=== PATIENT | male | born 1940 | race Two or more races ===

== ENCOUNTER → 2024-04-11 | Outpatient (CLI) | payer OTHER, SELFPAY ==
[2024-04-11 11:17] LABS: Collection Type, Urine Clean Catch
[2024-04-11 11:45] LABS: Bilirubin,Urine Negative (Negative); Blood,Urine Negative (Negative); Clarity,Urine Clear (Clear/Hazy); Color,Urine Lt-Yellow (Lt Yel-Yel); Culture Indicated,Urine Not Indicated; Glucose, Urine Negative (Negative); Ketones,Urine Negative (Negative); Leukocyte Esterase,Urine Negative (Negative); Nitrite,Urine Negative (Negative); Protein,Urine Negative (Neg - Trace); RBC,Urine 9 /hpf (0-3); Specific Gravity,Urine 1.019 (1.001-1.035); Squamous Epithelial Cell,Urine < 1 /hpf (0-5); Urobilinogen,Urine Negative mg/dL (0.0-1.0); WBC,Urine 1 /hpf (0-5)
[2024-04-11 11:50] LABS: Basophils % (Auto) 1 % (0-2.5); Eosinophils % (Auto) 1 % (0-10); Hematocrit 37.2 % (41.0-53.0); Hemoglobin 12.9 g/dL (13.5-16.0); Immature Granulocytes % (Auto) 0 % (0-0); Immature Granulocytes Auto 0.01 Thou/mm3 (0.00-0.00); Lymphocytes # (Auto) 1.3 Thou/mm3 (1.0-4.8); Lymphocytes % (Auto) 29 % (10-50); Mean Corpuscular HGB Conc 34.7 g/dl (31.0-37.0); Mean Corpuscular Hemoglobin 31.4 pg (25.0-35.0); Mean Corpuscular Volume 91 fL (80-100); Monocytes # (Auto) 0.3 Thou/mm3 (0.0-0.8); Monocytes % (Auto) 6 % (0-12); Neutrophils # (Auto) 2.9 Thou/mm3 (1.8-7.7); Neutrophils % (Auto) 63 % (37-80); Nucleated Red Blood Cell % 0 /100 WBC (0); Platelet Count 175 Thou/mm3 (140-440); RDW Standard Deviation 42.7 fL (35.1-43.9); Red Blood Count 4.11 Miln/mm3 (4.50-5.90); White Blood Count 4.6 Thou/mm3 (3.8-10.6)
[2024-04-11 11:54] LABS: Glucose Estimated Average 174 mg/dL (80-131); Hemoglobin A1C 7.7 % Hgb (4.8-6.0)
[2024-04-11 11:58] LABS: Alanine Aminotransferase 13 U/L (10-49); Albumin, Serum 4.5 gm/dL (3.4-4.8); Albumin/Globulin Ratio 1.7 (1.2-2.2); Alkaline Phosphatase 78 U/L (46-116); Anion Gap 5 (7-16); Aspartate Amino Transferase 17 U/L (0-34); BUN/Creatinine Ratio 19 Ratio (12-20); Bilirubin,Total 0.8 mg/dL (0.3-1.2); Blood Urea Nitrogen 15 mg/dL (9-23); Calcium 9.6 mg/dL (8.3-10.6); Calcium (Corrected) 9.6 mg/dL (8.5-10.1); Carbon Dioxide 27.7 mMol/L (20.0-31.0); Chloride 106 mMol/L (98-107); Creatinine (Component) 0.8 mg/dL (0.6-1.3); Globulin 2.6 gm/dL (2.3-3.5); Glucose 158 mg/dL (74-106); Osmolality,Calculated 281 (275-295); PSA Medicare Annual Scrn 0.66 ng/mL (0-4.00); Potassium 4.5 mMol/L (3.4-5.1); Sodium 139 mMol/L (136-145); Total Protein 7.1 gm/dL (5.7-8.2); eGFR > 60 See Note
[2024-04-11 11:59] LABS: Creatinine MALB Rnd Ur 83 mg/dL (30-125); Microalbumin Creat Ratio 6 mg/gCrea (<30); Microalbumin, Random Urine 5 mg/L (0-300)
[2024-04-11 12:02] LABS: Vitamin B12 843 pg/mL (211-911)
== END | disposition home or self-care (01) ==
LOC: COPL 10:36
PROVIDERS: PCP Internal Medicine; Referring Provider Internal Medicine; Visit Provider Internal Medicine
DX: E11.9 Type 2 diabetes mellitus without complications (principal); I10 Essential (primary) hypertension; R35.1 Nocturia; F03.90 Unspecified dementia, unspecified severity, without behavioral disturbance, psychotic disturbance, mood disturbance, and anxiety
CPT/HCPCS: 36415; 80053; 81001; 82043; 82570; 82607; 83036; 84153; 85025; G0103

== ENCOUNTER 2024-10-24 09:41 | Inpatient (IN) | payer OTHER, MEDICARE, SELFPAY ==
[2024-10-24] VITALS (10 sets, daily range): BP systolic 106–192; BP diastolic 59–89; PULSE 56–98; RESP 13–19; TEMP 35.5–37.2; O2SAT 93–99; BMI 28.8
--- NOTE | 2024-10-24 09:54 | EKG_ITS ---
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: : 1940 Requested By: Ariana Perdue Order Number: [id number] Reading MD: Ariana Perdue Measurements Intervals [place] Rate: 75 P: 1 WY: 145 QRS: -56 QRSD: 104 T: 37 QT: 408 QTc: 459 Interpretive Statements SINUS RHYTHM INCOMPLETE RIGHT BUNDLE BRANCH BLOCK [90+ ms QRS DURATION, TERMINAL R IN V1/V2, 40+ ms S IN I/aVL/V4/V5/V6] LEFT ANTERIOR FASCICULAR BLOCK [QRS AXIS <= -45, QR IN I, RS IN II] VOLTAGE CRITERIA FOR LVH [MEETS CRITERIA IN ONE OF: R(aVL), S(V1), R(V5), R(V5/V6)+S(V1)] POSSIBLE SEPTAL MYOCARDIAL INFARCTION , PROBABLY OLD [30 ms Q WAVE IN V1/V2] Compared to ECG 06/22/2022 17:28:10 No significant changes /store/S0/[id number]/ecg/[id number].pdf
--- NOTE | 2024-10-24 09:55 | PD.EDADULT ---
ED General RME/HPI General Chief complaint: Altered Mental Status Stated complaint: WEAKNESS Time Seen by Provider: 10/24/24 09:55 Arrival date/time: 10/24/24 09:41 RME / HPI RME / HPI narrative: DR. LORD MAIN ED EVALUATION: 84 year old male presents to the Emergency Department [facility] with complaint of lethargy/ generalized weakness. Per EMS, family reported that patient was in bed and went to the living room about an hour prior to arrival and then that is when he became lethargic and weak. When EMS arrived the pateint was found lethargic, with pinpoint pupils, shallow respirations, and hypotensive laying on the living room couch. Per EMS, patient became slightly more awake after Narcan and had equal psychiatric lpn. Blood glucose en route was 237. PMHx: Hypertension, dementia, and diabetes. Social Hx: No tobacco, alcohol, or substance use. Related Data Home Medications ?Medication ?Instructions ?Recorded ?Confirmed atenolol 50 mg tablet 50 mg PO QDAY 07/23/21 06/11/22 metformin 500 mg tablet 500 mg PO BID 07/23/21 07/23/21 lisinopril 10 mg tablet 10 mg PO QDAY 06/11/22 06/11/22 meloxicam 7.5 mg tablet 7.5 mg PO QDAY 06/11/22 06/11/22 Allergies Allergy/AdvReac Type Severity Reaction Status Date / Time No Known Allergies Allergy Verified 06/11/22 11:34 Review of Systems Review of Systems ROS Unobtainable: unobtainable due to mental status Past Medical History Past Medical History CARDIAC: Positive Cardiac Disorders and Hypertension GASTROINTESTINAL: Positive Gastrointestinal Disorders and Gastrointestinal Bleed ENDOCRINE: Positive Endocrine Disorders and Diabetes Mellitus Type 2 Social History SMOKING STATUS: Never smoker SUBSTANCE USE: does not use ALCOHOL: Never ED Exam Narrative Physical exam: GENERAL APPEARANCE: altered, lethargic, responsive to painful stimuli only, with pinpoint pupils VITALS: All vitals were reviewed and the pulse ox is 99% on 2 L/min via a nasal cannula. HEENT: Normocephalic, atraumatic; pinpoint pupils; mucous membranes pink, moist; oropharynx clear NECK: Supple LUNGS: CTABL; no wheezes, no rales, no rhonchi HEART: Regular rate, regular rhythm; normal S1, S2; no murmurs ABDOMEN: non distended; normal BS; soft, no tenderness, no guarding, no rebound; no masses, no organomegaly, no hernia BACK: no CVA tenderness EXTREMITIES: atraumatic; no edema NEUROLOGIC: altered, lethargic, responsive to painful stimuli only SKIN: warm, dry, normal color; no rashes Course Course Course Narrative: 951: Stroke alert initiated. Orders made at this time are congruent stroke protocol. Quality Measures none Orders Category Date Time Status Bedside Blood Glucose NOW Care 10/24/24 09:54 Active Director Of Rehabilitative Services NOW Care 10/24/24 09:54 Active Continuous Pulse Oximetry NOW Care 10/24/24 09:54 Completed EKG (ED ONLY) *Do not use* NOW Care 10/24/24 09:54 Completed In and Out Catheter NEEDED Care 10/24/24 09:54 Completed Initiate Warming Therapy X1 Care 10/24/24 12:29 Active Insert IV NOW Care 10/24/24 09:54 Active NIH Stroke Scale now Care 10/24/24 09:54 Active NPO NOW Care 10/24/24 09:54 Active Nurse Swallow Screen x1 Care 10/24/24 09:54 Active Consult to Neurology / Tele-Neurology Routine Cons 10/24/24 09:[address] angio stroke protocol Stat Exams 10/24/24 09:[address] stroke protocol Stat Exams 10/24/24 09:54 Completed EKG (ED Only) Stat Exams 10/24/24 09:54 Draft Ammonia Stat Lab 10/24/24 09:55 Completed Arterial Blood Gas Stat Lab 10/24/24 10:16 Completed B-Type Natriuretic Peptide Stat Lab 10/24/24 09:55 Completed CBC Stat Lab 10/24/24 09:55 Completed Comprehensive Metabolic Panel Stat Lab 10/24/24 09:55 Completed Drug Screen,Urine Stat Lab 10/24/24 10:55 Completed Magnesium Stat Lab 10/24/24 09:55 Completed Partial Thromboplastin Time Stat Lab 10/24/24 09:55 Completed Prothrombin Time with INR Stat Lab 10/24/24 09:55 Completed Troponin I Stat Lab 10/24/24 09:55 Completed Urinalysis Stat Lab 10/24/24 10:55 Completed Urine Culture Stat Lab 10/24/24 10:55 Received Ondansetron Inj [Zofran Inj] Med 10/24/24 09:54 Active 4 mg IVP Q4HR PRN Oxygen Delivery NOW RT 10/24/24 09:54 Active Reevaluation(s) Reevaluation #1: Patient is still responsive to painful stimuli only. Son is at bedside and states that maybe the patient did not take his medications last night but that his sister, the patient's daughter, would know the history better since the patient lives with her. Time: 12:03 Reevaluation #2: Daughter came in and told this morning the patient was trying to get out of bed but was too weak; his tried to help him but she is small and he was too weak so they called an ambulance. Per daughter, patient has dementia and has taken his 's medicatins in the past; unsure if he overdosed on any medications. Time: 12:30 Vital Signs Vital signs: Vital Signs Pulse Rate 98 10/24/24 09:54 Discharge Plan Plan Patient Disposition: Admit Acute Care w/in Hospital Prescriptions/Referrals Prescriptions/Med Rec: No Action metformin 500 mg tablet 500 mg PO BID atenolol 50 mg tablet 50 mg PO QDAY meloxicam 7.5 mg tablet 7.5 mg PO QDAY Patient Comments: TOME ROBBY TABLETA POR VIA ORAL TODOS LOS BRAVO CON ALIMENTO PARA DOLOR DE ESPALDA lisinopril 10 mg tablet 10 mg PO QDAY Patient Comments: TOME ROBBY TABLETA TODOS LOS D FOR BLOOD PRESSURE Referrals: Tom Shelton [Primary Care Provider] - In 1 week Problem List Clinical Impression: Altered mental status Patient/Caregiver Discharge Instructions Print Language: Amharic Stand Alone Forms: Lizette Award Info., Patient Portal Info Letter MDM Narrative [facility] hospital course: I, Verónica Linder am scribing for and in the presence of Dr. Lord. Clinical Information Provided by EMS [facility] Meds/Rx Considered, not Ordered None Labs/Rad/Tests considered, not Ordered None Chronic Illness/Social Conditions Add or document further as needed: PMHx: Hypertension, dementia, and diabetes. Social Hx: No tobacco, alcohol, or substance use. EKG Interpretation EKG #1: Date/time of EK10/24/24 1019 hours EKG interpretation: sinus rhythm, rate 75, incomplete right bundle branch block Imaging Radiology reports / interpretation(s): Procedure(s): CT stroke protocol Accession Number(s): [id number] cc: Chris Rodriges MD; Ariana Lord MD~ Examination: CT brain head without contrast. 2-D sagittal coronal reconstructions Date and time of exam:October 24, 2024 0959 hours INDICATIONS: Stroke alert, onset focal neurologic deficit today with altered mental status CTDI: vol (mGy):54.7 DLP: (mGycm):1106 Technique: Multiple CT axial sections of the brain have been obtained, 5 mm slice thickness. Contrast has not been administered. 2-D sagittal, coronal reconstructions have been obtained Low dose protocols were performed. One or more of the following dose reduction techniques were used; automated exposure control, adjustment of the mA and/or KV according to patient size, use of iterative reconstruction technique. Findings: Mild ventricular enlargement. Intra-axial or extra-axial hemorrhage density is not seen. No mass effect or midline shift Basal cisterns are not remarkable. Fourth ventricle is midline. Cranial vault intact. Impression: Negative for acute hemorrhage, mass effect or midline shift Dictated By: Chris Rodriges MD Procedure(s): CT angio stroke protocol Accession Number(s): [id number] cc: Tom Shelton; Chris Rodriges MD; Ariana Lord MD~ Examination: CTA carotids with intravenous contrast CTA brain, head with intravenous contrast. 2-D sagittal, coronal reconstructions. 3-D reconstructions. Exam date and time: October 24, 2024 1004 hours INDICATIONS: Stroke alert today, onset focal neurologic deficit CTDI: vol (mGy) 11.7 DLP: (mGycm) 447 Technique: Multiple CTA axial brain, head carotid images post intravenous contrast injection 75 cc, [id number]. 2-D sagittal, coronal reconstructions. 3-D reconstructions, 3-D post processing including vascular maximum intensity projection images. Low dose protocols were performed. One or more of the following dose reduction techniques were used; automated exposure control, adjustment of the mA and/or KV according to patient size, use of iterative reconstruction technique. Findings: No significant common carotid carotid bifurcation or internal carotid artery stenoses Severely atretic right vertebral artery in the neck which does opacify No cerebral large vessel arterial occlusions IMPRESSION: Severely atretic right vertebral artery, suggest carotid vertebral Doppler sonography follow-up to assess for retrograde flow in the right vertebral artery No cerebral large vessel arterial occlusions or thrombus Dictated By: Chris Rodriges MD Medication Administration(s) Medication Administration History Ondansetron HCl (Ondansetron Inj 2 Mg/Ml Inj 2 Ml) 4 mg IVP Q4HR PRN PRN Reason: NAUSEA OR VOMITING Stop: 11/23/24 09:53 Consultations/Discussions re: Management Consult #1: Date/time: 10/24/24 1310 hours Physician, specialty, service, details: Discussed test HPI, PMHx, lab, radiology results and/or management with resident working with the hospitalist. Will admit for further evaluation and management. Accepts patient for admission. Diagnosis Differential diagnosis: TIA, CVA, overdose Most likely dx, and/or detailed dx discussion: AMS Dispositon Disposition: Admit
--- NOTE | 2024-10-24 10:00 | PC.NURSE ---
UNABLE TO COMPLETE NIHSS DUE TO PT NOT ABLE TO FOLLOW COMMANDS
[2024-10-24 10:08] LABS: Basophils % (Auto) 1 % (0-2.5); Eosinophils # (Auto) 0.1 Thou/mm3 (0.0-0.5); Eosinophils % (Auto) 2 % (0-10); Hematocrit 32.8 % (41.0-53.0); Hemoglobin 11.8 g/dL (13.5-16.0); Immature Granulocytes % (Auto) 0 % (0-0); Immature Granulocytes Auto 0.01 Thou/mm3 (0.00-0.00); Lymphocytes # (Auto) 1.2 Thou/mm3 (1.0-4.8); Lymphocytes % (Auto) 26 % (10-50); Mean Corpuscular Hemoglobin 31.6 pg (25.0-35.0); Mean Corpuscular Volume 88 fL (80-100); Monocytes # (Auto) 0.3 Thou/mm3 (0.0-0.8); Monocytes % (Auto) 7 % (0-12); Neutrophils # (Auto) 2.8 Thou/mm3 (1.8-7.7); Neutrophils % (Auto) 64 % (37-80); Nucleated Red Blood Cell % 0 /100 WBC (0); Platelet Count 156 Thou/mm3 (140-440); RDW Standard Deviation 41.1 fL (35.1-43.9); Red Blood Count 3.74 Miln/mm3 (4.50-5.90); White Blood Count 4.4 Thou/mm3 (3.8-10.6)
[2024-10-24 10:19] LABS: Base Excess 0 (-3-3); HCO3 25 mEq/L (20-26); Inspired O2, VO2 Liters 2 L/min; O2 Saturation 99 % (91-98); PCO2 39 mmHg (32.0-48.0); PO2 104 mmHg (83-108); pH, Arterial 7.41 (7.35-7.45)
[2024-10-24 10:23] LABS: Allen Test Not Performed; Puncture Site Left Radial
[2024-10-24 10:29] LABS: INR 1.2 (0.9-1.3); Partial Thromboplastin Time 27.2 Seconds (22.0-36.0); Prothrombin Time 12.9 Seconds (9.0-12.2)
[2024-10-24 10:40] LABS: B-Type Natriuretic Peptide 129 pg/mL (0-100)
[2024-10-24 10:42] LABS: Ammonia < 10 uMol/L (11-32)
[2024-10-24 10:53] LABS: Alanine Aminotransferase < 7 U/L (10-49); Albumin/Globulin Ratio 1.7 (1.2-2.2); Alkaline Phosphatase 79 U/L (46-116); Anion Gap 12 (7-16); Aspartate Amino Transferase 14 U/L (0-34); BUN/Creatinine Ratio 13 Ratio (12-20); Bilirubin,Total 0.7 mg/dL (0.3-1.2); Blood Urea Nitrogen 12 mg/dL (9-23); Calcium 8.6 mg/dL (8.3-10.6); Calcium (Corrected) 8.6 mg/dL (8.5-10.1); Carbon Dioxide 25.3 mMol/L (20.0-31.0); Chloride 103 mMol/L (98-107); Creatinine (Component) 0.9 mg/dL (0.6-1.3); Estimated Creatinine Clearance 59.1 mL/min (>60); Globulin 2.3 gm/dL (2.3-3.5); Glucose 226 mg/dL (74-106); Magnesium 1.6 mg/dL (1.6-2.6); Osmolality,Calculated 286 (275-295); Potassium 3.8 mMol/L (3.4-5.1); Sodium 140 mMol/L (136-145); Total Protein 6.3 gm/dL (5.7-8.2); Troponin I < 0.020 ng/mL (0.0-0.045); eGFR > 60 See Note
[2024-10-24 10:57] LABS: Collection Type, Urine Catheter
[2024-10-24 11:02] LABS: Bilirubin,Urine Negative (Negative); Blood,Urine Negative (Negative); Clarity,Urine Clear (Clear/Hazy); Color,Urine Lt-Yellow (Lt Yel-Yel); Glucose, Urine 1+ (Negative); Hyaline Casts,Urine < 1 /hpf (0-1); Ketones,Urine 1+ (Negative); Leukocyte Esterase,Urine Negative (Negative); Nitrite,Urine Negative (Negative); Protein,Urine Negative (Neg - Trace); RBC,Urine 6 /hpf (0-3); Specific Gravity,Urine 1.028 (1.001-1.035); Squamous Epithelial Cell,Urine < 1 /hpf (0-5); Urobilinogen,Urine Negative mg/dL (0.0-1.0); WBC,Urine 1 /hpf (0-5)
[2024-10-24 11:09] LABS: Amphetamine/Methamp Scrn,U Negative (Negative); Barbiturate Screen,Urine Negative (Negative); Benzodiazepines Screen,Urine Negative (Negative); Benzoylecgonine Screen, Ur Negative (Negative); Fentanyl Screen,Urine Negative (Negative); Opiate Screen,Urine Negative (Negative); THC Screen,Urine Negative (Negative)
--- NOTE | 2024-10-24 14:50 | PD.RESHP ---
Documentation for date of: 10/24/24 [facility] History of Present Illness History of present illness: Patient is very somnolent and is unable to wake up to give history. Daughter is at bedside and history is obtained from her. Mr. Cortes is a 84-year-old male with past medical history significant for hypertension, diabetes, and dementia presented to the ED accompanied by daughter due to increased somnolence noted this morning. Patient's daughter stated that typically patient goes to bed around 11 PM and wakes up between noon and 1 PM the next day. However last night there was a garden snake in the house which Mr. Cortes later than usual and also caused him to wake up between 430 and 5 AM wondering if there was another snake in the house and was looking for another snake. Patient then went back to sleep and woke up at 8 AM to get ready to go somewhere with the family however patient was so sleepy he was unable to continue on the day. Patient then went to sleep on the floor at bedside and was unable to be aroused and woken. Patient daughter reported this has never happened before and patient denied any shortness of breath, dizziness, palpitations or syncopal episode prior to falling asleep. Patient's daughter then called EMS and was reported his heart rate and blood pressure were very low and fingerstick glucose was around 200. Patient lives with his daughter and . Patient usually takes his own medications without being supervised by anyone. Daughter is unable to confirm if her dad has taken multiple doses of the medications or not. Daughter reports in the past he has taken double doses of some medications due to his dementia and unable to recall. Daughter also denies any use of drugs or narcotics, states that her sister is prescribed tramadol however it is out of reach for her dad and her mom does have prescription for [employer] for his surgery in the past but is unable to confirm if there is any pills left. Patient does not have any episodes of melena or hematochezia. Has not reported any symptoms or complaints of chest pain or abdominal pain. ED course In the ED initial vitals include blood pressure 192/89, pulse 98, respirations 18, temperature 96.1, patient is on 2 L of oxygen via nasal cannula saturating 98%. Labs include hemoglobin 11.8, hematocrit 32.8, glucose 226, ammonia < 10, BNP 129 Urinalysis is negative Urine tox is negative ABG is within normal limits CT of head is negative for acute hemorrhage, mass effect or midline shift CTA of head/neck: No cerebral large vessel arterial occlusions or thrombus noted. Severely atretic right vertebral artery EKG: Sinus rhythm without any ST or T wave changes In the ED patient did not receive any medications or fluids PMH: Diabetes, Hypertension, Dementia PSH: No known surgical history SH: Denies alcohol, drugs or tobacco use Home meds: Melatonin 5 mg, Aricept 10 mg, quetiapine 50 mg, lisinopril 10 mg, atenolol 50 mg daily, metformin 500 mg twice daily Review of Systems Review of Systems Systems Reviewed: All systems reviewed, normal except as documented Exam Vital Signs Temp Pulse Resp BP Pulse Ox O2 Del Method O2 Flow Rate 95.9 F L 56 L 14 119/62 97 Nasal Cannula 2 10/24/24 12:29 10/24/24 12:00 10/24/24 12:00 10/24/24 12:00 10/24/24 12:00 10/24/24 12:00 10/24/24 12:00 Narrative Exam GENERAL: Elderly male somnolent, unable to arouse NEURO: no focal neurological deficits noted HEENT: Atraumatic, Normocephalic. mucous membranes moist. pin point pupils but reactive to light HEART: Normal Heart Sounds LUNGS: Clear to auscultation with no wheezing or crackles. ABDOMEN: soft, non-distended, non-tender, bowel sounds heard, no guarding or rebound tenderness SKIN: No Rash or ecchymoses EXTREMITIES: No edema, tenderness, able to move all 4 extremities, pedal pulses palpated Results: Labs 10/26/24 05:16 10/26/24 05:16 Labs: Short CBC 10/24/24 Range/Units 09:55 WBC 4.4 (3.8-10.6) Thou/mm3 Hgb 11.8 L (13.5-16.0) g/dL Hct 32.8 L (41.0-53.0) % Plt Count 156 (140-440) Thou/mm3 BMP 10/24/24 09:55 Sodium 140 Potassium 3.8 Chloride 103 Carbon Dioxide 25.3 BUN 12 Creatinine 0.9 Glucose 226 H Calcium 8.6 Cardiac Enzymes 10/24/24 Range/Units 09:55 Troponin I < 0.020 (0.0-0.045) ng/mL Liver Function 10/24/24 Range/Units 09:55 Total Bilirubin 0.7 (0.3-1.2) mg/dL AST 14 (0-34) U/L ALT < 7 L (10-49) U/L Alkaline Phosphatase 79 (46-116) U/L Albumin 4.0 (3.4-4.8) gm/dL Urine 10/24/24 Range/Units 10:55 Urine Color Lt-Yellow (Lt Yel-Yel) Urine Clarity Clear (Clear/Hazy) Urine pH 7.0 (5.0-7.0) Ur Specific [place] 1.028 (1.001-1.035) Urine Protein Negative (Neg - Trace) Urine Glucose (UA) 1+ A (Negative) ABG Interpretation ABG results: 10/24/24 10:16 ABG pH 7.41 ABG pCO2 39 ABG pO2 104 ABG HCO3 25 ABG O2 Saturation 99 H ABG Base Excess 0 Quality Measures Quality Measures none Advance care planning discussed with:: child Medications Home Medications and Allergies Home Medications ?Medication ?Instructions ?Recorded ?Confirmed ?Type atenolol 50 mg tablet 50 mg PO QDAY 07/23/21 10/24/24 History metformin 500 mg tablet 500 mg PO BID 07/23/21 10/24/24 History lisinopril 10 mg tablet 10 mg PO QDAY 06/11/22 10/24/24 History meloxicam 7.5 mg tablet 7.5 mg PO QDAY 06/11/22 10/24/24 History melatonin 5 mg tablet 5 mg PO HS PRN sleep 10/24/24 10/24/24 History quetiapine 50 mg tablet 50 mg PO ONCE HS 10/24/24 10/24/24 History Allergies Allergy/AdvReac Type Severity Reaction Status Date / Time No Known Allergies Allergy Verified 06/11/22 11:34 Visit Medications Acetaminophen (Acetaminophen 325 Mg Tablet) 650 mg PO Q6H PRN PRN Reason: Fever >101.5 Stop: 11/23/24 14:39 Heparin Sodium (Porcine) (Heparin Sod Inj 5000 Unit/Ml Vial) 5,000 unit SC Q8HR DEBBI Stop: 11/07/24 21:59 Sodium Chloride (Ns) 1,000 mls @ 75 mls/hr IV .[id number] [facility] Stop: 11/23/24 14:48 Ondansetron HCl (Ondansetron Inj 2 Mg/Ml Inj 2 Ml) 4 mg IVP Q4HR PRN PRN Reason: NAUSEA OR VOMITING Stop: 11/23/24 09:53 Assessment & Plan Plan Mr. Cortes is a 84-year-old male with past medical history significant for hypertension, diabetes, and dementia presented to the ED accompanied by daughter due to increased somnolence noted this morning and unable to arouse or respond to painful stimuli. pt is admitted to telemetry for further monitoring. #Acute encepholapathy, likely secondary #Overuse of prescribed medications, unintentional #Hx of Dementia -Pt was found to be somnolent and unarousable. Although vitals are stable, Pt does not wake up with painful stimuli and is not answering any questions. Pt does have history of dementia. Daughter at bedside is unable to confirm if pt have taken multiple doses of his prescribed medications or not due to his dementia. Pt takes his own medications at home without assistance. Per daughter pt has previously taken double doses of medications unintentionally. -Pt has pinpoint pupils that are reactive to light, Daughter denies pt's use of any drugs or narcotics. Per daughter Pt was given a dose of narcan by the EMS but made no difference. -vitals are stable and labs are within normal limits. -UA and Urine tox is negative -CT head, CTA of head/neck and EKG showed no significant findings Plan: -Poison control is contacted by the ED -ordered etoh, ASA, and tyelenol levels -neuro checks Q4H -repeat EKG Q6h to monitor QTc -Consulted inhouse Neurologist, pending recs -NPO due to risk of aspiration, will advance diet when pt wakes up -Maintenance fluids ordered -Will hold home melatonin, Aricept and seroquel due to pt's somnolence. -Pt and family will likely need education upon discharge on medication use and monitoring due to pt's history of dementia. #Primary Hypertension -On admission Pt BP was 192/89 but resolved without medications to 119/62. -Due to BP on the lower side, will hold home lisinopril and atenolol. Will resume when able #Jqr-Wwiwuhw-ewwgnnsps Diabetes Mellitus -Will hold Pt's home metformin 500mg BID -Started insulin sliding scale -Hypoglycemia protocol in place -Glucose checks Q6 hrs due to Pt being NPO, will change it to ACHS when pt's diet is resumed. Health Maintenance Disposition: telemetry DVT Prophylaxis: Heparin 5000 units SC Q8 hrs GI Prophylaxis: not indicated Diet: NPO due to pt's somnolence and increase risk of aspirtion , will resume diet when Pt is awake and alert Lines: Peripheral lines Code status: Full Assessment and plan discussed with my attending physician Dr. Mj Tejada (PGY-1)- Internal medicine resident Attending Provider Attestation/Addendum Azalia Locke, , attest that I was physically present for the ctoto portions of the service and evaluated the patient with the resident and I reviewed and discussed the case with the resident and agree with the resident's findings and plans of care as documented above Patient is an 84-year-old male with past medical history of hypertension, diabetes, dementia on hospice who was brought to the ED by ambulance due to altered mental status. Per daughter at bedside, patient goes to bed around 11 PM and sleeps about 11 to 12 hours daily. However, patient's sleep was interrupted last night as he woke up around 2 AM to look for a garden snake. Patient returned to bed and was to get ready at 5 in the morning so that he could be accompanied by his to go to [facility] for an appointment. However, upon waking patient up at that time, patient was unable to be awoken. He also slowly slumped to the ground. Daughter states that this is never happened in the past, but he is a deep sleeper. Patient is given his medications by his , but unsure if patient took his own medications when he had woken up a second time at 2 AM. Upon review of bedside medications, both Seroquel bottles are empty, as well as 1 of 2 melatonin bottles. Patient is very somnolent and snoring at time of evaluation. Gag reflex is intact, Babinski is negative, patient is able to withdraw to noxious stimuli. Patient does not open his eyes spontaneously. Pupils are reactive and equal to light, but pinpoint. Abdomen is soft and nondistended. Daughter states there are no narcotics that the patient could potentially have taking. He is on 2 L nasal cannula. Patient may have overdosed on his medications, although unclear, resulting in his acute encephalopathy. Labs are otherwise unremarkable and UA is negative for any infection. CT head was negative for any acute intracranial findings. Will admit patient to telemetry for further workup and medical management of acute metabolic encephalopathy. Poison control called due to concern for overdose of possibly Seroquel and melatonin. Will follow EKGs every 6 hours due to concern for prolonged QTc. Will do neurochecks every 4 hours. Will further screen for EtOH, acetaminophen or salicylate levels. Will consult neuro for further recommendations due to concern for acute metabolic encephalopathy.
[2024-10-24] MEDS: SODIUM CHLORIDE 0.9% 1000 ML 1,000 ML 75 ML IV (14:57)
--- NOTE | 2024-10-24 15:35 | PD.RESCONSUL ---
HPI Data of Consult Requesting Physician: Azalia Barker DO Admitting Provider: Azalia Barker DO Attending Provider: Azalia Barker DO Primary Care Provider: Tom Shelton Consult Narrative Reason for consult: altered mental status History of present illness: The patient is a 84 year old male with previous medical history of hypertension, T2DM, dementia who was brought in by ambulance due to lethargy. Daughter at the bedside, reports that patient's last known well was around 7:30 AM. EMS was found patient to be lethargic, pinpoint pupils and shallow respirations, hypotensive, received Narcan before coming to the hospital. According to the daughter patient could have ingested Seroquel, as they noticed that there is less Seroquel tablets that it should be. Daughter denies that patient reported chest pain, abdominal pain, diarrhea, nausea, vomiting. She reports that he is confused on the baseline and not oriented in time and place. Ambulates independently on a baseline. She also reports that he has history of headaches. ED course: Initial blood pressure 192/89, heart rate 98, respiratory rate 18, hypothermic 96.1, saturating well on 2 L nasal cannula. Labs showed WBC count 4.4, hemoglobin 11.8, hematocrit 32.8, platelet count 158, INR 1.2, ABG showed pH 7.41, pCO2 39, PO2 10, 4 sodium 140, potassium 3.8, carbon dioxide 25.3, anion gap 12, BUN 12, creatinine 0.9, EGFR more than 60, glucose 226, calcium 8.6, magnesium 1.6, T. bili 0.7, AST 14, ALT less than 7, ammonia less than 10, troponin I less than 0.020, BNP 129. UA was negative for signs of UTI. U tox was negative. Head CT was negative for acute intracranial pathology, head CT showed severely atretic right vertebral artery, negative for cerebral large vessel occlusion. Patient was started on maintenance fluids at 75 mL/h. Neurology was consulted for altered mental status. cc:: cc: Azalia Barker DO Review of Systems Review of Systems ROS Unobtainable: unobtainable due to mental status Past Medical History Past Medical History CARDIAC: Positive Cardiac Disorders and Hypertension GASTROINTESTINAL: Positive Gastrointestinal Disorders and Gastrointestinal Bleed ENDOCRINE: Positive Endocrine Disorders and Diabetes Mellitus Type 2 Social History SMOKING STATUS: Never smoker SUBSTANCE USE: does not use ALCOHOL: Never Exam Vital Signs Temp Pulse Resp BP Pulse Ox O2 Del Method O2 Flow Rate 98.1 F 64 13 106/59 L 95 Nasal Cannula 1 10/24/24 15:10/24/24 15:27 10/24/24 15:27 10/24/24 15:27 10/24/24 15:27 10/24/24 15:10/24/24 15:27 Narrative Exam Gen: Well-developed and well-nourished. HEENT: NCAT, MMM, anicteric conjunctivae. CVS: normal S1 and S2. RRR. No M/R/G. Resp: CTA B/L. No rhonchi, rales, crackles or wheezing. Abd: soft, non-tender, non-distended. BS+ in all 4 quadrants. MSK: Good ROM in BUE & BLE. No edema or rash. Neuro:Pinpoint pupils, equal, weakly reactive to light, face symmetrical, intact corneal reflex, localizes pain, negative babinski. GCS 9. Psych: impossible to assess due to mental status Results Labs 10/24/24 09:55 10/24/24 09:55 Labs: Short CBC 10/24/24 Range/Units 09:55 WBC 4.4 (3.8-10.6) Thou/mm3 Hgb 11.8 L (13.5-16.0) g/dL Hct 32.8 L (41.0-53.0) % Plt Count 156 (140-440) Thou/mm3 BMP 10/24/24 09:55 Sodium 140 Potassium 3.8 Chloride 103 Carbon Dioxide 25.3 BUN 12 Creatinine 0.9 Glucose 226 H Calcium 8.6 Cardiac Enzymes 10/24/24 Range/Units 09:55 Troponin I < 0.020 (0.0-0.045) ng/mL Liver Function 10/24/24 Range/Units 09:55 Total Bilirubin 0.7 (0.3-1.2) mg/dL AST 14 (0-34) U/L ALT < 7 L (10-49) U/L Alkaline Phosphatase 79 (46-116) U/L Albumin 4.0 (3.4-4.8) gm/dL Urine 10/24/24 Range/Units 10:55 Urine Color Lt-Yellow (Lt Yel-Yel) Urine Clarity Clear (Clear/Hazy) Urine pH 7.0 (5.0-7.0) Ur Specific [place] 1.028 (1.001-1.035) Urine Protein Negative (Neg - Trace) Urine Glucose (UA) 1+ A (Negative) ABG Interpretation ABG results: 10/24/24 10:16 ABG pH 7.41 ABG pCO2 39 ABG pO2 104 ABG HCO3 25 ABG O2 Saturation 99 H ABG Base Excess 0 Quality Measures Quality Measures VTE prophylaxis Advance care planning discussed with:: other Medications Home Medications and Allergies Home Medications ?Medication ?Instructions ?Recorded ?Confirmed ?Type atenolol 50 mg tablet 50 mg PO QDAY 07/23/21 06/11/22 History metformin 500 mg tablet 500 mg PO BID 07/23/21 07/23/21 History lisinopril 10 mg tablet 10 mg PO QDAY 06/11/22 06/11/22 History meloxicam 7.5 mg tablet 7.5 mg PO QDAY 06/11/22 06/11/22 History Allergies Allergy/AdvReac Type Severity Reaction Status Date / Time No Known Allergies Allergy Verified 06/11/22 11:34 Visit Medications Acetaminophen (Acetaminophen 325 Mg Tablet) 650 mg PO Q6H PRN PRN Reason: Fever >101.5 Stop: 11/23/24 14:39 Dextrose (Dextrose 50%-Water Inj 50 Ml Syringe) 25 ml IV Q15MIN PRN PRN Reason: BG 50-70 responsive npo pt Stop: 11/23/24 15:16 Dextrose (Dextrose 50%-Water Inj 50 Ml Syringe) 50 ml IV Q15MIN PRN PRN Reason: BG <50 OR BG <70 & pt unresponsive Stop: 11/23/24 15:16 Glucagon (Glucagon Inj 1 Mg Vial) 1 mg IM Q15MIN PRN PRN Reason: BG <70, and no IV access Heparin Sodium (Porcine) (Heparin Sod Inj 5000 Unit/Ml Vial) 5,000 unit SC Q8HR [facility] Stop: 11/07/24 21:59 Sodium Chloride (Ns) 1,000 mls @ 75 mls/hr IV .[id number] [facility] Stop: 11/23/24 14:48 Last Admin: 10/24/24 14:57 Dose: 75 mls/hr Insulin Human Lispro (Insulin Lispro (Admelog) 1 Unit/0.01 Ml Unit) 0 unit SC AC DEBBI; Protocol Stop: 11/23/24 16:59 Ondansetron HCl (Ondansetron Inj 2 Mg/Ml Inj 2 Ml) 4 mg IVP Q4HR PRN PRN Reason: NAUSEA OR VOMITING Stop: 11/23/24 09:53 Assessment & Plan Plan The patient is a 84 year old male with previous medical history of hypertension, T2DM, dementia who was brought in by ambulance due to lethargy. #Acute encephalopathy #History of dementia Ddx: toxic vs metabolic encephalopathy Patient is lethargic, GCS 9. CT head was negative for acute intracranial pathology, utox was negative. Plan: - supportive measures - telemetry - urine cultures ordered - poison control contacted - TSH, lipid panel - NPO #History of hypertension #History of diabetes #Hypothermia - management per primary team Plan of care discussed with attending Dr. Bethea. Yulisa Dash MD, PGY 1. Attending Provider Attestation/Addendum I independently reviewed the patient's chart and agreed with resident's findings, assessment and plan of care. Will continue with current mgt, follow him closely and the decide about the need for further workup including the MRI brain and EEG in 24 hours.
--- NOTE | 2024-10-24 17:30 | EKG_ITS ---
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: : 1940 Requested By: Azalia Park Order Number: [id number] Reading MD: Azalia Park Measurements Intervals [place] Rate: 62 P: 17 RI: 174 QRS: -54 QRSD: 97 T: 57 QT: 433 QTc: 440 Interpretive Statements SINUS RHYTHM INCOMPLETE RIGHT BUNDLE BRANCH BLOCK [90+ ms QRS DURATION, TERMINAL R IN V1/V2, 40+ ms S IN I/aVL/V4/V5/V6] LEFT ANTERIOR FASCICULAR BLOCK [QRS AXIS <= -45, QR IN I, RS IN II] VOLTAGE CRITERIA FOR LVH [MEETS CRITERIA IN ONE OF: R(aVL), S(V1), R(V5), R(V5/V6)+S(V1)] POSSIBLE SEPTAL MYOCARDIAL INFARCTION , OF INDETERMINATE AGE [30 ms Q WAVE IN V1/V2] Compared to ECG 10/24/2024 10:19:31 No significant changes /store/S0/[id number].pdf
[2024-10-24 18:37] LABS: Acetaminophen < 2.0 mcg/mL (10.0-20.0); Alcohol, Blood Medical < 10.0 mg/dL (0-10.0); Salicylate < 3.0 mg/dL
--- NOTE | 2024-10-24 20:39 | PD.TNEURO ---
Tele Neuro Consultation Consultation Date 10/24/24 Most Recent Vital Signs Last Vital Signs Temp 97.4 F 10/24/24 20:31 Pulse 60 10/24/24 20:31 Resp 15 10/24/24 20:31 BP 127/68 10/24/24 20:31 Pulse Ox 93 L 10/24/24 20:31 O2 Del Method Room Air 10/24/24 20:31 O2 Flow Rate 1 10/24/24 17:52 Laboratory-Coagulation Panel PT 12.9 Seconds (9.0-12.2) H 10/24/24 09:55 INR 1.2 (0.9-1.3) 10/24/24 09:55 APTT 27.2 Seconds (22.0-36.0) 10/24/24 09:55 Consultation Narrative [facility] Patient Name:???prabha munoz Date of :???1940 Identification Number:??? Date of Service:???10/24/2024 09:57:51 Diagnosis:?G93.49 - Encephalopathy Multifactorial Impression: ?Patient is a 84-year-old male with a past medical history significant for hypertension, diabetes, baseline neurocognitive disorder is being evaluated for concerns of altered mental status. ? ?Patient presents unresponsive from home. Unclear last well-known. Patient went to bed early this morning and has not been responsive since then. ?On exam patient grimaces to sternal rub no purposeful movements noticed on bilateral upper and lower extremities. Minimal withdrawal to painful stimuli in all 4 extremities. Pupils are pinpoint and not reactive to light as per nursing staff. Intact eye closure strength bilaterally. ?Head CT appears unremarkable for any acute intracranial pathology. CT angiogram of the head and neck does not reveal any large vessel occlusion. ?Most likely suffering from encephalopathy. ?- due to the nonlateralizing exam and unclear last well-known patient is not an IV thrombolytic candidate. ?- Consider a broad encephalopathy workup with toxic, metabolic, infectious etiologies. ?- Please obtain MRI brain with and without contrast. ?- Can consider EEG if etiology remains cryptic, low suspicion for seizures. Our recommendations are outlined below. Recommendations: ? Bedside Swallow Eval ? DVT Prophylaxis ? IV Fluids, Normal Saline ? Head of Bed 30 Degrees ? Euglycemia and Avoid Hyperthermia (PRN Acetaminophen) ?- due to the nonlateralizing exam and unclear last well-known patient is not an IV thrombolytic candidate. ?- Consider a broad encephalopathy workup with toxic, metabolic, infectious etiologies. ?- Please obtain MRI brain with and without contrast. ?- Can consider EEG if etiology remains cryptic, low suspicion for seizures. Sign Out: ? Discussed with Emergency Department Provider Advanced Imaging:CTA Head and Neck Completed. LVO:No Patient is not a candidate for ROSALINE Metrics: Last Known Well: Unknown Dispatch Time: 10/24/2024 09:57:51 Arrival Time: 10/24/2024 09:55:00 Initial Response Time: 10/24/2024 10:04:00Symptoms: Altered mental status. Initial patient interaction: 10/24/2024 10:17:23 NIHSS Assessment Completed: 10/24/2024 10:39:29Patient is not a candidate for Thrombolytic. Thrombolytic Medical Decision: 10/24/2024 10:39:30Patient was not deemed candidate for Thrombolytic because of following reasons: LKW outside 4.5 hr window. . other diagnosis suspected Non focal neurological exam. CT Head: I personally reviewed all the CT images that were available to me and it showed: no acute intracranial findings Primary Provider Notified of Diagnostic Impression and Management Plan on: 10/24/2024 10:46:53 History of Present Illness:Patient is a 84 year old Male. Patient was brought by EMS for symptoms of Altered mental status. Patient is a 84-year-old male with a past medical history significant for hypertension, diabetes, baseline neurocognitive disorder is being evaluated for concerns of altered mental status. Most of the history is obtained from daughter who is at bedside. Mentions that patient has been agitated all night because there was a snake in the house. He usually goes to bed early during the night. However yesterday night he was very worried that there was another snake in the house. He was looking at things like the garden hose, belt, other common objects in the house and thinking that it was a snake. Unclear eventually when he went to bed. He usually takes a melatonin at home. Unclear if he took any melatonin by himself. This morning he was found to be unresponsive. When EMS was called, they found that he was hypotensive. His pupils were also pinpoint and nonreactive to light. They gave him a liter of fluids after which he slightly improved. He was also given 2 mg of Narcan, however he did not wake up. ? Past Medical History: ?Hypertension ?Diabetes Mellitus ?Hyperlipidemia Other PMH:? Dementia Medications: No Anticoagulant use? No Antiplatelet use Reviewed EMR for current medications Allergies:? Description:?As per chart Social History: Unable To Obtain Due To Patient Status :?Patient Cannot Communicate Relevant Social History Family History: There is no family history of premature cerebrovascular disease pertinent to this consultation ROS : 14 Points Review of Systems was performed and was negative except mentioned in HPI. Past Surgical History: There Is No Surgical History Contributory To Today?s Visit ? Examination: BP(169/74),?Pulse(74),?Blood Glucose(237) 1A: Level of Consciousness - Postures or Unresponsive?+ 3 1B: Ask Month and Age - Could Not Answer Either Question Correctly?+ 2 1C: Blink Eyes & Squeeze Hands - Performs 0 Tasks?+ 2 2: Test Horizontal Extraocular Movements - Normal?+ 0 3: Test Visual Scott - No Visual Loss?+ 0 4: Test Facial Palsy (Use Grimace if Obtunded) - Normal symmetry?+ 0 5A: Test Left Arm Motor Drift - No Effort Against Alexander?+ 3 5B: Test Right Arm Motor Drift - No Effort Against Alexander?+ 3 6A: Test Left Leg Motor Drift - No Effort Against Alexander?+ 3 6B: Test Right Leg Motor Drift - No Effort Against Alexander?+ 3 7: Test Limb Ataxia (FNF/Heel-[place]) - No Ataxia?+ 0 8: Test Sensation - Normal; No sensory loss?+ 0 9: Test Language/Aphasia - Mute/Global Aphasia: No Usable Speech/Auditory Comprehension?+ 3 10: Test Dysarthria - Mute/Anarthric?+ 2 11: Test Extinction/Inattention - No abnormality?+ 0 NIHSS Score:?24 NIHSS Free Text :?Grimaces to sternal rub. Pre-Morbid Modified Willacy Scale:Unable to assess Spoke with :?ED Provider This consult was conducted in real time using interactive audio and video technology. Patient was informed of the technology being used for this visit and agreed to proceed. Patient located in hospital and provider located at home/office setting. Patient is being evaluated for possible acute neurologic impairment and high probability of imminent or life-threatening deterioration. I spent total of 44 minutes providing care to this patient, including time for face to face visit via telemedicine, review of medical records, imaging studies and discussion of findings with providers, the patient and/or family. Dr Mingo Mortensen [facility] For Inpatient follow-up with [facility] physician please call [facility] at . As we are not an outpatient service for any post hospital discharge needs please contact the hospital for assistance. If you have any questions for the [facility] physicians or need to reconsult for clinical or diagnostic changes please contact us via [facility] at . ?
[2024-10-24] MEDS: HEPARIN SOD INJ 5000 UNIT/ML VIAL SC (22:09)
--- NOTE | 2024-10-24 23:05 | PC.NURSE ---
Dr. Mcallister made aware NIHSS score increased from 24 in the Emergency Department to 26 upon reassessment on Telemetry. No further orders at this time.
[2024-10-25] VITALS (11 sets, daily range): BP systolic 139–182; BP diastolic 74–91; PULSE 56–123; RESP 14–93; TEMP 36.4–37.3; O2SAT 95–97; BMI 25.4
--- NOTE | 2024-10-25 05:30 | EKG_ITS ---
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
[2024-10-25] MEDS: HEPARIN SOD INJ 5000 UNIT/ML VIAL SC ×3 (05:47→21:00)
--- NOTE | 2024-10-25 06:00 | EKG_ITS ---
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
[2024-10-25 06:17] LABS: Basophils % (Auto) 0 % (0-2.5); Eosinophils # (Auto) 0.1 Thou/mm3 (0.0-0.5); Eosinophils % (Auto) 1 % (0-10); Hematocrit 33.7 % (41.0-53.0); Hemoglobin 12.1 g/dL (13.5-16.0); Immature Granulocytes % (Auto) 0 % (0-0); Immature Granulocytes Auto 0.01 Thou/mm3 (0.00-0.00); Lymphocytes # (Auto) 1.2 Thou/mm3 (1.0-4.8); Lymphocytes % (Auto) 20 % (10-50); Mean Corpuscular HGB Conc 35.9 g/dl (31.0-37.0); Mean Corpuscular Hemoglobin 31.7 pg (25.0-35.0); Mean Corpuscular Volume 88 fL (80-100); Monocytes # (Auto) 0.5 Thou/mm3 (0.0-0.8); Monocytes % (Auto) 8 % (0-12); Neutrophils # (Auto) 4.2 Thou/mm3 (1.8-7.7); Neutrophils % (Auto) 70 % (37-80); Nucleated Red Blood Cell % 0 /100 WBC (0); Platelet Count 162 Thou/mm3 (140-440); RDW Standard Deviation 42.5 fL (35.1-43.9); Red Blood Count 3.82 Miln/mm3 (4.50-5.90)
[2024-10-25 06:42] LABS: Glucose Estimated Average 194 mg/dL (80-131); Hemoglobin A1C 8.4 % Hgb (4.8-6.0)
[2024-10-25 06:57] LABS: Alanine Aminotransferase 11 U/L (10-49); Albumin, Serum 3.7 gm/dL (3.4-4.8); Albumin/Globulin Ratio 1.6 (1.2-2.2); Alkaline Phosphatase 69 U/L (46-116); Anion Gap 13 (7-16); Aspartate Amino Transferase 31 U/L (0-34); BUN/Creatinine Ratio 15 Ratio (12-20); Bilirubin,Total 0.8 mg/dL (0.3-1.2); Blood Urea Nitrogen 12 mg/dL (9-23); Calcium 8.7 mg/dL (8.3-10.6); Calcium (Corrected) 8.9 mg/dL (8.5-10.1); Carbon Dioxide 24.3 mMol/L (20.0-31.0); Cardiac Risk Estimate 3.1 RATIO (4.0-6.7); Chloride 107 mMol/L (98-107); Cholesterol 154 mg/dL (132-200); Creatinine (Component) 0.8 mg/dL (0.6-1.3); Estimated Creatinine Clearance 59.6 mL/min (>60); Globulin 2.3 gm/dL (2.3-3.5); Glucose 151 mg/dL (74-106); HDL Cholesterol 49 mg/dL (40-60); LDL Cholesterol,Calculated 84 mg/dL (0-130); Magnesium 1.7 mg/dL (1.6-2.6); Osmolality,Calculated 289 (275-295); Phosphorous 3.4 mg/dL (2.4-5.1); Potassium 3.8 mMol/L (3.4-5.1); Sodium 144 mMol/L (136-145); Thyroid Stimulating Hormone 1.06 uIU/mL (0.55-4.78); Triglycerides 104 mg/dL (30-150); eGFR > 60 See Note
[2024-10-25] MEDS: SODIUM CHLORIDE 0.9% 1000 ML 1,000 ML 75 ML IV (08:49)
--- NOTE | 2024-10-25 11:24 | PC.RT ---
DR ROSARIO NOTIFIED REGARDING EEG AND PT UNABLE TO STAY STILL OR FOLLOW DIRECTIONS FOR PROCEDURE. DR ROSARIO WILL NOTIFY DR SUNSHINE
--- NOTE | 2024-10-25 11:30 | EKG_ITS ---
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
[2024-10-25] MEDS: DONEPEZIL HCL 5 MG TABLET 10 MG PO (11:41)
[2024-10-25] MEDS: atenoloL 25 MG TABLET 50 MG PO (11:42)
[2024-10-25] MEDS: Lisinopril 2.5 MG TABLET 10 MG PO (11:42)
--- NOTE | 2024-10-25 11:45 | PD.RESPRO ---
Documentation for date of: 10/25/24 Subjective Subjective Interval history: Patient was seen and examined by the bedside. Patient is awake, following commands. Had to be restrained overnight due to agitation, was trying to get out the bed. Conversation was done using translation services [facility]. Patient is AOx1, when asked about time and place, names numbers that are unrelated to the date. Patient was not able to tolerate EEG electrodes, will postpone EEG and MRI for now. According to the family, patient is back to his baseline and has been on hospice for dementia. Exam Vital Signs Temp Pulse Resp BP Pulse Ox O2 Del Method O2 Flow Rate 99.0 F 96 14 160/91 H 96 Room Air 1 10/25/24 08:00 10/25/24 11:42 10/25/24 08:00 10/25/24 11:42 10/25/24 08:00 10/25/24 08:00 10/24/24 17:52 Narrative Exam Gen: Well-developed and well-nourished. HEENT: NCAT, PERRLA, EOMI, MMM, anicteric conjunctivae. CVS: normal S1 and S2. RRR. No M/R/G. Resp: CTA B/L. No rhonchi, rales, crackles or wheezing. Abd: soft, non-tender, non-distended. BS+ in all 4 quadrants. MSK: Good ROM in BUE & BLE. No edema or rash. Neuro: CN II-XII grossly intact. Alert and oriented x1. Follows commands, moves all 4 extremities. Psych: hard to assess due to confusion. Objective Labs 10/25/24 04:18 10/25/24 04:18 Labs: Laboratory Results - last 24 hr 10/24/24 10/25/24 17:41 04:18 WBC 6.0 RBC 3.82 L Hgb 12.1 L Hct 33.7 L MCV 88 MCH 31.7 MCHC 35.9 RDW Std Deviation 42.5 Plt Count 162 Neut % (Auto) 70 Lymph % (Auto) 20 [place] % (Auto) 8 Eos % (Auto) 1 Baso % (Auto) 0 Neut # (Auto) 4.2 Lymph # (Auto) 1.2 [place] # (Auto) 0.5 Eos # (Auto) 0.1 Baso # (Auto) 0.0 Immature Gran # (Auto) 0.01 H Absolute Nucleated RBC 0.00 Immature Gran % 0 Nucleated RBC % 0 Sodium 144 Potassium 3.8 Chloride 107 Carbon Dioxide 24.3 Anion Gap 13 BUN 12 Creatinine 0.8 Estim Creat Clear Calc 59.6 L eGFR > 60 BUN/Creatinine Ratio [address] Glu mg/dL 194 H Hemoglobin A1c 8.4 H Calculated Osmolality 289 Calcium 8.7 Corrected Calcium 8.9 Phosphorus 3.4 Magnesium 1.7 Total Bilirubin 0.8 AST 31 ALT 11 Alkaline Phosphatase 69 Total Protein 6.0 Albumin 3.7 Globulin 2.3 Albumin/Globulin Ratio 1.6 Triglycerides 104 Cholesterol 154 LDL Cholesterol, Calc 84 HDL Cholesterol 49 Cholesterol/HDL Ratio 3.1 L TSH 1.06 Salicylates < 3.0 Acetaminophen < 2.0 L Ethyl Alcohol < 10.0 ABG Interpretation ABG results: 10/24/24 10:16 ABG pH 7.41 ABG pCO2 39 ABG pO2 104 ABG HCO3 25 ABG O2 Saturation 99 H ABG Base Excess 0 Quality Measures Quality Measures VTE prophylaxis Advance care planning discussed with:: other Assessment & Plan Assessment Current Active Medications: Generic Name Dose Route Start Last Admin Trade Name Freq PRN Reason Stop Dose Admin Acetaminophen 650 mg 10/24/24 14:40 Acetaminophen 325 Mg Tablet PO 11/23/24 14:39 Q6H PRN Fever >101.5 Atenolol 50 mg 10/25/24 09:45 10/25/24 11:42 Atenolol 25 Mg Tablet PO 11/24/24 09:44 50 mg QDAY DEBBI Administration Dextrose 25 ml 10/24/24 15:17 Dextrose 50%-Water Inj 50 Ml Syringe IV 11/23/24 15:16 Q15MIN PRN BG 50-70 responsive npo pt Dextrose 50 ml 10/24/24 15:17 Dextrose 50%-Water Inj 50 Ml Syringe IV 11/23/24 15:16 Q15MIN PRN BG <50 OR BG <70 & pt unresponsive Donepezil HCl 10 mg 10/25/24 09:45 10/25/24 11:41 Donepezil Hcl 5 Mg Tablet PO 11/24/24 09:44 10 mg QDAY DEBBI Administration Glucagon 1 mg 10/24/24 15:17 Glucagon Inj 1 Mg Vial IM Q15MIN PRN BG <70, and no IV access Heparin Sodium (Porcine) 5,000 unit 10/24/24 22:00 10/25/24 05:47 Heparin Sod Inj 5000 Unit/Ml Vial SC 11/07/24 21:59 5,000 unit Q8HR DEBBI Administration Sodium Chloride 1,000 mls @ 75 mls/hr 10/24/24 14:49 10/25/24 08:49 Ns IV 11/23/24 14:48 75 mls/hr .[id number] DEBBI Administration Insulin Human Lispro 0 unit 10/24/24 17:00 10/25/24 07:29 Insulin Lispro (Admelog) 1 Unit/0.01 Ml Unit SC 11/23/24 16:59 Not Given AC [facility] Protocol Lisinopril 10 mg 10/25/24 09:45 10/25/24 11:42 Lisinopril 2.5 Mg Tablet PO 11/24/24 09:44 10 mg QDAY DEBBI Administration Ondansetron HCl 4 mg 10/24/24 09:54 Ondansetron Inj 2 Mg/Ml Inj 2 Ml IVP 11/23/24 09:53 Q4HR PRN NAUSEA OR VOMITING Plan The patient is a 84 year old male with previous medical history of hypertension, T2DM, dementia who was brought in by ambulance due to lethargy. #Acute encephalopathy, improved #History of dementia Ddx: toxic vs metabolic encephalopathy Patient was lethargic, GCS [address] head was negative for acute intracranial pathology, utox was negative. TSH 1.6, LDL 84 mg/dl. According to the family, patient is confused in time and place on a baseline. Plan: - supportive measures - telemetry - urine cultures pending - poison control contacted, appreciate recs - dysphagia diet - MRI and EEG on hold for now due to patient being unable to tolerate it - Frequent reorientation - Family visitation - Natural sunlight during day hours - continue with home donepezil - follow-up with neurologist #History of hypertension #History of diabetes #Hypothermia - management per primary team Plan of care discussed with attending Dr. Bethea. Yulisa Dash MD, PGY 1. Attending Provider Attestation/Addendum I personally have seen and examined the patient at the bedside and agree with resident's findings, assessment and plan of care. Will add memantine 5 mg twice a day, continue with the donepezil 5 mg at bedtime and quetiapine 50 mg at bedtime. Continue with hospice care with [place]. Will consider additional workup as needed upon follow-up in my office. Patient is stable from neurology standpoint for discharge as he is back to his baseline as per family.
[2024-10-25] MEDS: INSULIN LISPRO (AdmeLOG) 1 UNIT/0.01 ML UNIT SC ×2 (12:13→18:23)
--- NOTE | 2024-10-25 13:03 | ESPR_ITS ---
<Statement entered by Josiah Ruiz MD - 10/25/24 14:31> Patient examined and case discussed with the team including attending physician. Note reviewed, I agree with the care plan as documented. Mr Cortes is an 84-year-old male with past medical history significant for hypertension, diabetes, and dementia admitted to telemetry for acute encepholapathy secondary to unintentional overdose of prescribed medications, in the setting of advanced dementia. UA and Urine tox is negative. CT head, CTA of head/neck and EKG showed no significant findings. Etoh, ASA, and tyelenol levels wnl. Poison control has cleared the patient. Consulted inhouse Neurologist, appreciate recs. Will hold home melatonin, Aricept and seroquel due to pt's somnolence. Home atenolol and lisinopril resumed for BP 180/90s. SSI for NIDDM. Disposition: Pending Neurology recommendations, MRIB and EEG. Please refer to the note below for further details. - Josiah Ruiz MD, PGY 2 Disclaimer: The document may contain phonetic/typographic errors due to voice recognition software. These errors are purely due to imperfections in the software program. Documentation for date of: 10/25/24 Subjective Subjective Interval history: Patient seen today at the bedside. Baseline still waxes and wanes however per the family patient is at baseline at this time. Spoke with neurology who recommended MRI/EEG however unable to place electrodes on the patient as he is altered and removes them, currently on soft restraints at this time. Assuming work up is negative possible Dc in next 24 hours. Exam Vital Signs Temp Pulse Resp BP Pulse Ox O2 Del Method O2 Flow Rate 99.0 F 96 14 160/91 H 96 Room Air 1 10/25/24 08:00 10/25/24 11:42 10/25/24 08:00 10/25/24 11:42 10/25/24 08:00 10/25/24 08:00 10/24/24 17:52 Narrative Exam Physical Exam GENERAL: NAD HEENT: Moist mucosa. Eyes open, symmetrical, & clear CARDIO: Heart RRR, no obvious murmurs PULM: No noted coughing/dyspnea CTA B/L, no R/W/R GI: Abdomen soft, nondistended, no pain on palpation. BSx4 SKIN/MSK/EXT: No wounds/rashes/edema/amputations, no pain on palpation. Pedal pulses present B/L NEURO: able to move all 4 extremities Objective Labs 10/26/24 05:16 10/26/24 05:16 Labs: Laboratory Results - last 24 hr 10/24/24 10/25/24 17:41 04:18 WBC 6.0 RBC 3.82 L Hgb 12.1 L Hct 33.7 L MCV 88 MCH 31.7 MCHC 35.9 RDW Std Deviation 42.5 Plt Count 162 Neut % (Auto) 70 Lymph % (Auto) 20 [place] % (Auto) 8 Eos % (Auto) 1 Baso % (Auto) 0 Neut # (Auto) 4.2 Lymph # (Auto) 1.2 [place] # (Auto) 0.5 Eos # (Auto) 0.1 Baso # (Auto) 0.0 Immature Gran # (Auto) 0.01 H Absolute Nucleated RBC 0.00 Immature Gran % 0 Nucleated RBC % 0 Sodium 144 Potassium 3.8 Chloride 107 Carbon Dioxide 24.3 Anion Gap 13 BUN 12 Creatinine 0.8 Estim Creat Clear Calc 59.6 L eGFR > 60 BUN/Creatinine Ratio [address] Glu mg/dL 194 H Hemoglobin A1c 8.4 H Calculated Osmolality 289 Calcium 8.7 Corrected Calcium 8.9 Phosphorus 3.4 Magnesium 1.7 Total Bilirubin 0.8 AST 31 ALT 11 Alkaline Phosphatase 69 Total Protein 6.0 Albumin 3.7 Globulin 2.3 Albumin/Globulin Ratio 1.6 Triglycerides 104 Cholesterol 154 LDL Cholesterol, Calc 84 HDL Cholesterol 49 Cholesterol/HDL Ratio 3.1 L TSH 1.06 Salicylates < 3.0 Acetaminophen < 2.0 L Ethyl Alcohol < 10.0 ABG Interpretation ABG results: 10/24/24 10:16 ABG pH 7.41 ABG pCO2 39 ABG pO2 104 ABG HCO3 25 ABG O2 Saturation 99 H ABG Base Excess 0 Quality Measures Quality Measures VTE prophylaxis Advance care planning discussed with:: patient and child Assessment & Plan Assessment Current Active Medications: Generic Name Dose Route Start Last Admin Trade Name Freq PRN Reason Stop Dose Admin Acetaminophen 650 mg 10/24/24 14:40 Acetaminophen 325 Mg Tablet PO 11/23/24 14:39 Q6H PRN Fever >101.5 Atenolol 50 mg 10/25/24 09:45 10/25/24 11:42 Atenolol 25 Mg Tablet PO 11/24/24 09:44 50 mg QDAY DEBBI Administration Dextrose 25 ml 10/24/24 15:17 Dextrose 50%-Water Inj 50 Ml Syringe IV 11/23/24 15:16 Q15MIN PRN BG 50-70 responsive npo pt Dextrose 50 ml 10/24/24 15:17 Dextrose 50%-Water Inj 50 Ml Syringe IV 11/23/24 15:16 Q15MIN PRN BG <50 OR BG <70 & pt unresponsive Donepezil HCl 10 mg 10/25/24 09:45 10/25/24 11:41 Donepezil Hcl 5 Mg Tablet PO 11/24/24 09:44 10 mg QDAY DEBBI Administration Glucagon 1 mg 10/24/24 15:17 Glucagon Inj 1 Mg Vial IM Q15MIN PRN BG <70, and no IV access Heparin Sodium (Porcine) 5,000 unit 10/24/24 22:00 10/25/24 05:47 Heparin Sod Inj 5000 Unit/Ml Vial SC 11/07/24 21:59 5,000 unit Q8HR DEBBI Administration Sodium Chloride 1,000 mls @ 75 mls/hr 10/24/24 14:49 10/25/24 08:49 Ns IV 11/23/24 14:48 75 mls/hr .[id number] DEBBI Administration Insulin Human Lispro 0 unit 10/24/24 17:00 10/25/24 12:13 Insulin Lispro (Admelog) 1 Unit/0.01 Ml Unit SC 11/23/24 16:59 2 unit AC DEBBI Administration Protocol Lisinopril 10 mg 10/25/24 09:45 10/25/24 11:42 Lisinopril 2.5 Mg Tablet PO 11/24/24 09:44 10 mg QDAY DEBBI Administration Ondansetron HCl 4 mg 10/24/24 09:54 Ondansetron Inj 2 Mg/Ml Inj 2 Ml IVP 11/23/24 09:53 Q4HR PRN NAUSEA OR VOMITING Phenol/Menthol 0 ml 10/25/24 11:49 Phenol/Na Phenolate (Chloraseptic) [place] 180 Ml Btl PO 11/24/24 11:48 Q6HR PRN SORE THROAT Plan 84-year-old male with past medical history significant for hypertension, diabetes, and dementia presented to the ED accompanied by daughter due to increased somnolence noted this morning and unable to arouse or respond to painful stimuli. pt is admitted to telemetry for further monitoring. #Acute encepholapathy, likely secondary #Overuse of prescribed medications, unintentional #Hx of Dementia -Pt was found to be somnolent and unarousable. Although vitals are stable, Pt does not wake up with painful stimuli and is not answering any questions. Pt does have history of dementia. Daughter at bedside is unable to confirm if pt have taken multiple doses of his prescribed medications or not due to his dementia. Pt takes his own medications at home without assistance. Per daughter pt has previously taken double doses of medications unintentionally. Pt has pinpoint pupils that are reactive to light, Daughter denies pt's use of any drugs or narcotics. Per daughter Pt was given a dose of narcan by the EMS but made no difference. vitals are stable and labs are within normal limits. UA and Urine tox is negative CT head, CTA of head/neck and EKG showed no significant findings ordered etoh, ASA, and tyelenol levels wnl -Poison control is contacted by the ED - pending MRI brain and EEG if patient tolerates -repeat EKG Q6h to monitor QTc-trending down -Consulted inhouse Neurologist, pending recs -Maintenance fluids -Will hold home melatonin, Aricept and seroquel due to pt's somnolence. -Pt and family will likely need education upon discharge on medication use and monitoring due to pt's history of dementia. #Primary Hypertension -On admission Pt BP was 192/89 but resolved without medications to 119/62. -resumed atenolol and lisinopril as taken at home #Gdn-[id number] Diabetes Mellitus Will hold Pt's home metformin 500mg BID -SSI -Hypoglycemia protocol in place Health Maintenance Disposition: telemetry, pending MRI, EEG, neuro reccs DVT Prophylaxis: Heparin GI Prophylaxis: not indicated Diet: diet carb consistent Lines: Peripheral lines Code status: Full Case discussed with my senior Dr. Ruiz and my attending Dr. Mj Walker MD PGY-1 Attending Provider Attestation/Addendum Azalia Locke, , attest that I was physically present for the cotto portions of the service and evaluated the patient with the resident and I reviewed and discussed the case with the resident and agree with the resident's findings and plans of care as documented above Patient seen and evaluated this a.m. He is awake and confused. Per daughter and son at bedside, patient appears closer to his baseline as he has dementia and is somewhat confused. Patient is ANO x 1. Patient has been requiring restraints due to agitation. QTc has been within normal limits on EKG. Pending MRI and EEG per neuro. Rest of labs appears to be unremarkable.
--- NOTE | 2024-10-25 13:47 | PC.SS ---
GENERAL OFFICE ASSOCIATE conducted bedside contact with the patient conduct initial assessment and to discuss discharge planning.? Patient?s son, Reece Cortes at bedside.? Information obtained by the patient?s son.? Patient is Portuguese speaking.? Patient resides at home with spouse.? Patient does not utilize any form of DME to assist with ambulation.? Patient does not utilize home oxygen.? Patient possesses the ability to complete ADL?s independently.? Patient?s medical surrogate decision maker is son, Reece Cortes.? Patient?s PCP is Tom Shelton.? Patient does not participate with dialysis.? Patient does not possess any specialty providers.? Patient utilizes [facility] for medication services.? Plan is for the patient to return home at the time of discharge.? Family will provide transportation on behalf of the patient. ?No further discharge needs identified by the patient.? No further intervention required at this time, social media marketer will be available to address any further concerns.? Next of Kin: Reece Cortes D/C Plan: Home
--- NOTE | 2024-10-25 14:58 | PC.SS ---
Rounding Note: Neurology recommendations are pending. Patient currently on restraints.
--- NOTE | 2024-10-25 17:23 | PC.SS ---
Patient's family informed UNIFORMER that patient is aligned with [place] hosp[facility] services. Family to re-start hospice services upon patient's discharge home. UNIFORMER informed medical team of need to submit hospice referral to [facility] upon patient's discharge home once medically cleared.
--- NOTE | 2024-10-25 19:46 | PC.NURSE ---
at 1800, pt family expressed the desire to take patient home AMA, Dr. Goins and DAT Perez at bedside, education on leaving AMA done with family, all questions answered and with patient family understanding, no further questions from the family at this time
--- NOTE | 2024-10-25 22:45 | RESP.EEG ---
PT WAS RESTRAINED DUE TO NON-COMPLIACE. PT TRYING TO GET OUT OF BED AND SCREAMING. SITTER AT BEDSIDE. 2ND ATTEMPT EEG. DR PERDOMO.
[2024-10-25] MEDS: MELATONIN 3 MG TABLET 6 MG PO (23:02)
--- NOTE | 2024-10-25 23:02 | PC.NURSE ---
Unable to scan barcode of Melatonin 6 mg. Medication administration verified with administering RNShanel.
[2024-10-26] VITALS (8 sets, daily range): BP systolic 114–162; BP diastolic 67–89; PULSE 60–81; RESP 17–95; TEMP 36.6–37.1; O2SAT 94–97; BMI 24.5
[2024-10-26] MEDS: HEPARIN SOD INJ 5000 UNIT/ML VIAL SC ×2 (05:20→13:20)
[2024-10-26 06:19] LABS: Basophils % (Auto) 0 % (0-2.5); Eosinophils # (Auto) 0.1 Thou/mm3 (0.0-0.5); Eosinophils % (Auto) 1 % (0-10); Hematocrit 36.4 % (41.0-53.0); Hemoglobin 12.9 g/dL (13.5-16.0); Immature Granulocytes % (Auto) 0 % (0-0); Immature Granulocytes Auto 0.01 Thou/mm3 (0.00-0.00); Lymphocytes # (Auto) 1.4 Thou/mm3 (1.0-4.8); Lymphocytes % (Auto) 21 % (10-50); Mean Corpuscular HGB Conc 35.4 g/dl (31.0-37.0); Mean Corpuscular Hemoglobin 31.8 pg (25.0-35.0); Mean Corpuscular Volume 90 fL (80-100); Monocytes # (Auto) 0.5 Thou/mm3 (0.0-0.8); Monocytes % (Auto) 8 % (0-12); Neutrophils # (Auto) 4.4 Thou/mm3 (1.8-7.7); Neutrophils % (Auto) 69 % (37-80); Nucleated Red Blood Cell % 0 /100 WBC (0); Platelet Count 179 Thou/mm3 (140-440); RDW Standard Deviation 42.6 fL (35.1-43.9); Red Blood Count 4.06 Miln/mm3 (4.50-5.90); White Blood Count 6.4 Thou/mm3 (3.8-10.6)
[2024-10-26 06:33] LABS: Alanine Aminotransferase 19 U/L (10-49); Albumin/Globulin Ratio 1.6 (1.2-2.2); Alkaline Phosphatase 76 U/L (46-116); Anion Gap 13 (7-16); Aspartate Amino Transferase 57 U/L (0-34); BUN/Creatinine Ratio 13 Ratio (12-20); Bilirubin,Total 1.1 mg/dL (0.3-1.2); Blood Urea Nitrogen 12 mg/dL (9-23); Calcium 8.9 mg/dL (8.3-10.6); Calcium (Corrected) 8.9 mg/dL (8.5-10.1); Carbon Dioxide 24.8 mMol/L (20.0-31.0); Chloride 106 mMol/L (98-107); Creatinine (Component) 0.9 mg/dL (0.6-1.3); Globulin 2.5 gm/dL (2.3-3.5); Glucose 118 mg/dL (74-106); Magnesium 1.7 mg/dL (1.6-2.6); Osmolality,Calculated 287 (275-295); Phosphorous 3.8 mg/dL (2.4-5.1); Potassium 3.5 mMol/L (3.4-5.1); Sodium 144 mMol/L (136-145); Total Protein 6.5 gm/dL (5.7-8.2); eGFR > 60 See Note
[2024-10-26] MEDS: INSULIN LISPRO (AdmeLOG) 1 UNIT/0.01 ML UNIT SC ×2 (07:46→11:15)
[2024-10-26] MEDS: atenoloL 25 MG TABLET 50 MG PO (08:16)
[2024-10-26] MEDS: DONEPEZIL HCL 5 MG TABLET 10 MG PO (08:16)
[2024-10-26] MEDS: Lisinopril 2.5 MG TABLET 10 MG PO (08:17)
[2024-10-26] MEDS: INSULIN GLARGINE (Lantus) 5 UNIT/0.05 ML (PER 5 UNITS) SC (08:17)
--- NOTE | 2024-10-26 10:15 | PC.SS ---
PHARMACEUTICAL SCIENTIST confirmed with [facility] that patient is receiving services from agency.
--- NOTE | 2024-10-26 10:26 | PC.PT ---
PT spoke with ASSEMBLER CAMPER about patient discharging home on hospice. Patient is aligned with hospice services. Will cancel PT evaluation due to patient is a hospice patient.
--- NOTE | 2024-10-26 12:11 | ESDS_ITS ---
<Statement entered by Azalia Barker DO - 10/26/24 16:14> I, Azalia Barker DO, attest that I was physically present for the cotto portions of the service and evaluated the patient with the resident and I reviewed and discussed the case with the resident and agree with the resident's findings and plans of care as documented above <Statement entered by Josiah Ruiz MD - 10/26/24 15:32> Patient was examined with the team including attending physician. Note reviewed, I agree with the discharge plan as documented. - Josiah Ruiz MD PGY2 Disclaimer: The document may contain phonetic/typographic errors due to voice recognition software. Planned Discharge Date 10/26/24 DS: Providers Provider Date of admission: 10/24/24 14:40 Primary care physician: Tom Shelton Admitting Provider: Azalia Barker DO Attending Provider on Admission: Azalia Barker DO Consults: 10/24/24 09:54 Consult to Neurology / Tele-Neurology Routine Comment: Consulting Provider: [facility] 10/24/24 14:47 Consult to Neurology / Tele-Neurology Stat Comment: Consulting Provider: Curtis Bethea 10/25/24 09:43 Referral Speech Therapy Routine Comment: swallow eval pls 10/25/24 17:22 Referral Hospice Stat Comment: Attending Provider on DC: Azalia Barker DO Discharging Provider: Goran Walker MD Anticipated date of discharge: 10/26/24 DS: Diagnosis Problem List Completed Was Problem List Reviewed/Reconciled?: Yes Hospital Course Hospital Course Hospital course: 84-year-old male with past medical history of hypertension, diabetes, dementia who presented to the ED due to increased somnolence and lethargy. Patient was admitted for acute encephalopathy. During hospital stay patient was evaluated by neurology. Imaging studies were done including CT head, CTA head and neck also negative. Poison control also was called. On further investigation some of the patients prescribed medications were empty likely unintentional overused medications given the patients dementia. EEG and MRI had been ordered, but patient unable to tolerate exam due to confusion and agitation. Patient likely became encephalopathic due to overuse of prescribed medications likely unintentional as the patient has dementia. Patient's mental status back at baseline at this time. Family was instructed to provide medications for the patient to prevent this from happening again. Patient will be discharged with memantine 5 mg and donepezil 5 mg for dementia. Patient is recommended to follow-up with neurology within 2 weeks of discharge. At this time patient is medically stable for discharge. Follow up with hospice agency. Recommended to follow-up with primary care physician within 1 week of discharge. Recommended to follow-up with neurology within 2 weeks of discharge. You have been prescribed memantine 5 mg twice daily and your dose of donepezil has been adjusted to 5 mg daily. Should any symptoms recur or worsen patient is instructed to return to the ER. Problem list: #Acute encepholapathy, likely secondary to #Overuse of prescribed medications, unintentional #Hx of Dementia #Primary Hypertension #Cfn-Oaoiusi-ahgtkcrub Diabetes Mellitus Case discussed with my senior Dr. Ruiz and my attending Dr. Mj Walker MD PGY-1 Status at Discharge Functional status at discharge: uses cane/walker Overall status at discharge: patient is back to baseline Time Spent with Patient Time attestation: Total time spent providing and/or coordinating discharge services: Time spent: Greater than 30 minutes Exam Vital Signs Temp Pulse Resp BP Pulse Ox O2 Del Method O2 Flow Rate 98.5 F 71 18 162/89 H 94 L Room Air 1 10/26/24 08:00 10/26/24 08:17 10/26/24 08:00 10/26/24 08:17 10/26/24 08:00 10/26/24 08:00 10/24/24 17:52 Narrative Exam Physical Exam GENERAL: NAD HEENT: Moist mucosa. Eyes open, symmetrical, & clear CARDIO: Heart RRR, no obvious murmurs PULM: No noted coughing/dyspnea CTA B/L, no R/W/R GI: Abdomen soft, nondistended, no pain on palpation. BSx4 SKIN/MSK/EXT: No wounds/rashes/edema/amputations, no pain on palpation. Pedal pulses present B/L NEURO: able to move all 4 extremities Discharge Plan Plan Patient Disposition: Home w/HOSPICE Patient condition on transfer: Stable Care Plan Goals: Follow up with primary care physician within 1 week of discharge. Follow up with Neurology, Dr. Bethea within 2 weeks of discharge. You have been prescribed memantine 5mg twice a day, your donepezil dose has been adjusted Should any symptoms recur or worsen patient is instructed to return to the ED. Prescriptions/Referrals Prescriptions/Med Rec: New memantine 5 mg tablet 5 mg PO BID 30 Days Qty: 60 0RF donepezil 5 mg tablet 5 mg PO QDAY 30 Days Qty: 30 0RF Continued metformin 500 mg tablet 500 mg PO BID atenolol 50 mg tablet 50 mg PO QDAY meloxicam 7.5 mg tablet 7.5 mg PO QDAY Patient Comments: TOME ROBBY TABLETA POR VIA ORAL TODOS LOS BRAVO CON ALIMENTO PARA DOLOR DE ESPALDA lisinopril 10 mg tablet 10 mg PO QDAY Patient Comments: TOME ROBBY TABLETA TODOS LOS D FOR BLOOD PRESSURE melatonin 5 mg tablet 5 mg PO HS PRN (Reason: sleep) quetiapine 50 mg tablet 50 mg PO ONCE HS Rx Instructions: administer on day 1 of therapy Discontinued donepezil 10 mg tablet 10 mg PO QDAY Referrals: Tom Shelton [Primary Care Provider] - Patient/Caregiver Discharge Instructions Education Materials: Discharge Instructions for Stroke, Risk Factors for Stroke Print Language: Welsh Stand Alone Forms: Lizette Award Info., Patient Portal Info Letter Discharge Order Discharge Orders: Discharge (Routine); Ordered 10/26/24 Ordered By: Goran Walker Quality Discharge Quality Measures VTE prophylaxis
--- NOTE | 2024-10-26 13:11 | PC.SS ---
Hospice referral submitted to [facility]. Patient to resume services upon discharge.
--- NOTE | 2024-10-26 14:21 | PC.SS ---
Rounding Note: Plan is to d/c patient home with hospice.
== END 2024-10-26 15:40 | disposition hospice, home (50) | DRG 93 ==
LOC: SERX 13:49 → SERHOLD 14:55 → S2NX 20:05
PROVIDERS: Admitting Provider Internal Medicine; Emergency Provider Emergency Medicine; PCP Internal Medicine; Visit Provider Internal Medicine
DX: G92.8 Other toxic encephalopathy (principal); I10 Essential (primary) hypertension; I45.10 Unspecified right bundle-branch block; F03.90 Unspecified dementia, unspecified severity, without behavioral disturbance, psychotic disturbance, mood disturbance, and anxiety; E11.9 Type 2 diabetes mellitus without complications; T68.XXXA Hypothermia, initial encounter; Z79.84 Long term (current) use of oral hypoglycemic drugs; Z79.899 Other long term (current) drug therapy; Z51.5 Encounter for palliative care; Z78.1 Physical restraint status
CPT/HCPCS: 36415; 36600; 70450; 70496; 70498; 80053; 80061; 80307; 80320; 80329; 81001; 82140; 82803; 83036; 83735; 83880; 84100; 84443; 84484; 85025; 85610; 85730; 87086; 92610; 93005; 96372; 99285; A4649; J1644; J1815; J7030; Q9967; A9270; G0480